=== PATIENT | female | born 1965 | race Caucasian/White ===

== ENCOUNTER 2016-06-19 11:56 | Day surgery (SDC) | payer OTHER ==
[~2016-06-19] VITALS: Ht 170.2 cm; Wt 69.8 kg
[~2016-06-19 11:56] MED LIST: 0.9% Sodium Chloride 1,000 ML IV SCH; CHOL200047 PO; LEVO50TA6 PO; MOME30SO AFFECT_EAR; Sodium Chloride LOK Flush 10 mL Syringe IV PRN; TOPI-31 PO; fentaNYL-PF 50 mCg/mL 2 mL Inj IVPUSH PRN
[2016-06-19 12:48] VITALS: BP 143/93; PULSE 60; RESP 14; O2SAT 99
[2016-06-19] MEDS ORDERED: 0.9% Sodium Chloride 1,000 ML IV ONE (13:27)
--- NOTE | 2016-06-19 14:10 | PCM.ENDCOL ---
Colonoscopy Date of Service: Jun 19, 2016 Physician Mohan May MD Pre Procedure Diagnosis: Screening Post Procedure Dx & Findings: Polyp hemorrhoids diverticuliti Procedure Colonoscopy PROCEDURE IN DETAIL: Prep adequate Withdrawal time 15 minutes After unremarkable rectal examination the Olympus video colonoscope was inserted patient's anal canal and was advanced to cecum. Landmarks were identified including the ileocecal valve and appendiceal orifice. Scope was withdrawn systematically. Visualized colonic mucosa showed healthy shiny mucosa with normal healthy-appearing vasculature. In the cecum there was a 1 cm polyp which was removed completely using hot snare. In the rectum, there was a 3 mm polyp which was removed completely using cold snare. There was a 2 mm polyp which was removed completely using cold snare. In the sigmoid colon there are several small diverticuli. In the rectum retroflexion was done which showed hemorrhoids. Anal canal was inspected carefully on the way out and hemorrhoids noted. Impression Polyp 3 status post complete removal. Cecal polyp was 1 cm. Diverticuli Hemorrhoids Recommendation Repeat colonoscopy 3 years Diverticular diet: Presedation Assessment Risks and Benefits Informed consent was obtained from the patient after all risks and benefits including but not limited to drug reaction, infection, pain, bleeding, perforation, as well as alternatives were discussed. Patient monitoring Continuous pulse oximetry, cardiac monitoring, blood pressure monitoring, IV access, and oxygen at 2L per nasal cannula. Periprocedural Fentanyl: Fentanyl 200mcg Incrementally Midazolam: Midazolam 9mg Incrementally Complications There were no periprocedural complications identified. Post Procedure Plan Post Procedure Recommendations 1. Restrict activities today. 2. Resume normal activities in the morning. 3. Resume medications. 4. Patient informed of normal post procedure side effects as bloating, drowsiness, blood streaking in the stool. 5. average risk CRCS. If colon polyps come back as: -Hyperplastic- can repeat colonoscopy in 10 years -Tubular adenoma- repeat colonoscopy in 5 years -Tubulovillous/villous adenoma- repeat colonoscopy in 3 years -If any dysplasia- return to clinic as soon as possible 6. Please don't hesitate to call me with any questions. Mohan May MD Jun 19, 2016 14:10
[2016-06-19 14:13] VITALS: BP 127/76; PULSE 52; RESP 16; O2SAT 100
[2016-06-19 14:23] VITALS: BP 111/64; PULSE 52; RESP 14; O2SAT 97
--- NOTE | 2016-06-21 18:37 | PATH ---
SURGICAL PATHOLOGY Attending Physician:Mohan May M.D. CASE STATUS: Signed Out PATIENT NAME: KRISTINA TREJO PID: [id number] : 1965 DATE COLLECTED:06/19/2016 00:00 SPECIMEN: 1: Colon, Biopsy 2: Rectum, Biopsy CLINICAL HISTORY: 1). CECUM POLYP 2). RECTUM POLYP FINAL DIAGNOSIS: 1. Cecum, Polyp, Biopsy: Portions of sessile serrated adenoma x 3. 2. Rectum, Polyp, Biopsy: Portion of tubular adenoma x1; negative for high-grade dysplasia. Portion of hyperplastic polyp x1. ICD10: K62.1 GROSS DESCRIPTION: The specimen is received in two formalin filled containers labeled with the patient's name. 1). The specimen is sublabeled "cecum polyp" and consists of 3 portions of tissue which aggregate to 0.7 x 0.6 x 0.4 CM. The specimen is entirely submitted in cassette 1A. 2). The specimen is sublabeled "rectal polyps" and consists of 2 portions of tissue which aggregate to 0.8 x 0.4 x 0.3 CM. The specimen is entirely submitted in cassette 2A. 06/20/2016 [facility] ICD-9 CODES: CPT CODES: 1: 05478 2: 41408 Electronically Signed Out Verónica Gallagher MD [facility], [place] [address] Technical component performed at [facility], [address] [place] [address] [address], [place], [address]
== END 2016-06-19 23:59 | disposition home or self-care (01) ==
LOC: END 11:56
PROVIDERS: ATTEND Internal Medicine
DX: Z12.11 Encounter for screening for malignant neoplasm of colon (principal); D12.0 Benign neoplasm of cecum; D12.8 Benign neoplasm of rectum; K57.30 Diverticulosis of large intestine without perforation or abscess without bleeding; K64.8 Other hemorrhoids; E03.9 Hypothyroidism, unspecified
CPT/HCPCS: 45385; 99153; J7030